=== PATIENT | female | born 1995 | race Caucasian/White ===

== ENCOUNTER 2020-08-25 15:32 | Emergency (ER) | payer BC ==
--- NOTE | 2020-08-25 16:05 | ED ---
Anxiety HPI - General Chief Complaint: Anxiety Stated Complaint: anxiety Time Seen by Provider: 08/25/20 15:46 Source: patient Mode of arrival: ambulatory - History of Present Illness Initial Comments: 24-year-old female presenting to the emergency prompt a chief complaint of anxiety. Patient states she was issued diagnosed with Covid and now she has developed some lightheadedness and a cough. She denies any chest pain or shortness of breath. Patient states she was concerned because of having several episodes of lightheadedness but no syncope. She denies any dizziness. Denies any headaches or fevers but does report chills. She does report taking Tylenol prior to arrival. States she was diagnosed positive yesterday with a PCR test. Patient states that she has not been drinking as many fluids. No nausea or vomiting. - Related Data Home Medications: Home Medications Medication Instructions Recorded Confirmed Acetaminophen Tab [Tylenol Tab] 1,000 mg PO Q6HR PRN 08/25/20 08/25/20 Albuterol Inhaler [Ventolin Hfa 1 - 2 puff INHALATION RT-Q6H PRN 08/25/20 08/25/20 Inhaler] Montelukast [Singulair] 10 mg PO HS 08/25/20 08/25/20 Sertraline [Zoloft] 50 mg PO HS 08/25/20 08/25/20 Allergies/Adverse Reactions: Allergies Allergy/AdvReac Type Severity Reaction Status Date / Time No Known Allergies Allergy Verified 08/25/20 17:01 Review of Systems ROS Statement: Those systems with pertinent positive or pertinent negative responses have been documented in the HPI. ROS Other: All systems not noted in ROS Statement are negative. Past Medical History Past Medical History: Asthma History of Any Multi-Drug Resistant Organisms: None Reported Past Surgical History: No Surgical Hx Reported Past Psychological History: Anxiety Smoking Status: Never smoker Past Alcohol Use History: None Reported Past Drug Use History: None Reported General Exam Limitations: no limitations General appearance: alert, in no apparent distress, anxious Head exam: Present: atraumatic, normocephalic, normal inspection Eye exam: Present: normal appearance, PERRL, EOMI Pupils: Present: normal accommodation ENT exam: Present: normal exam, normal oropharynx, mucous membranes moist, TM's normal bilaterally, normal external ear exam Neck exam: Present: normal inspection, full ROM. Absent: tenderness Respiratory exam: Present: normal lung sounds bilaterally. Absent: respiratory distress, wheezes, rales Cardiovascular Exam: Present: regular rate, normal rhythm, normal heart sounds GI/Abdominal exam: Present: soft. Absent: distended, tenderness, guarding Extremities exam: Present: normal inspection, full ROM, normal capillary refill. Absent: tenderness, pedal edema, joint swelling, calf tenderness Back exam: Present: normal inspection, full ROM. Absent: tenderness, CVA tenderness (R), CVA tenderness (L) Neurological exam: Present: alert, oriented X3, normal gait Psychiatric exam: Present: normal affect, normal mood Skin exam: Present: warm, dry, intact, normal color Course Vital Signs 08/25/20 08/25/20 15:35 17:17 Temperature 98.9 F 97.9 F Pulse Rate 79 70 Respiratory 18 16 Rate Blood Pressure 129/76 124/70 O2 Sat by Pulse 100 99 Oximetry Medical Decision Making - Medical Decision Making 24-year-old female presenting to the emergency department with a chief complaint of anxiety and lightheadedness. On physical examination, patient is slightly anxious but she doesn't have any homicidal, suicidal thoughts or ideations. She did report somewhat his episodes which she believes is secondary to not drink enough water. UA was obtained and shows no signs of dehydration. the size urinary tract infection. patient is not . ekg showing sinus rhythm with an inverted T-wave in lead 3. This finding was discussed with patient and she was advised to follow with her primary care physician regarding this. Patient was advised to self isolate for the next 10 days from the day of the results or from the day of onset of symptoms. She was also advised to take Tylenol only. Develops a fever. - Lab Data Lab Results 08/25/20 08/25/20 Range/Units 16:05 16:11 Urine Color Colorless Urine Appearance Clear (Clear) Urine pH 7.0 (5.0-8.0) Ur Specific [place] 1.005 (1.001-1.035) Urine Protein Negative (Negative) Urine Glucose (UA) Negative (Negative) Urine Ketones Negative (Negative) Urine Blood Negative (Negative) Urine Nitrite Negative (Negative) Urine Bilirubin Negative (Negative) Urine Urobilinogen <2.0 (<2.0) mg/dL Ur Leukocyte Esterase Negative (Negative) Urine HCG, Qual Not Detected (Not Detectd) - EKG Data EKG Comments: Sinus rhythm, inverted T-wave in lead 3 Ventricular rate 66, TX 116, QRS 92, QTC 450. Disposition Clinical Impression: Acute anxiety Disposition: HOME SELF-CARE Condition: Stable Instructions (If sedation given, give patient instructions): Generalized Anxiety Disorder (ED) Additional Instructions: Follow with her primary care physician. Take Tylenol if he developed fever. Drink plenty of fluids. Return to emergency department if symptoms worsen. Is patient prescribed a controlled substance at d/c from ED?: No Referrals: None,Stated [Primary Care Provider] - 1-2 days Time of Disposition: 16:57
[2020-08-25 16:54] LABS: Appearance,Urine Clear (Clear); Bilirubin,Urine Negative (Negative); Blood,Urine Negative (Negative); Color,Urine Colorless; Glucose,Urine (UA) Negative (Negative); Ketones,Urine Negative (Negative); Leukocyte Esterase,Urine Negative (Negative); Nitrite,Urine Negative (Negative); Protein,Urine Negative (Negative); Specific Gravity,Urine 1.005 (1.001-1.035); Urobilinogen,Urine <2.0 mg/dL (<2.0)
[2020-08-25 17:18] VITALS: BP 124/70; PULSE 70; RESP 16; TEMP 97.9
== END 2020-08-25 17:17 | disposition home or self-care (01) ==
LOC: EC 15:32
DX: F41.9 Anxiety disorder, unspecified (principal); J45.909 Unspecified asthma, uncomplicated; Z79.899 Other long term (current) drug therapy
CPT/HCPCS: 81003; 81025; 93005; 99283